=== PATIENT | female | born 1980 | race Native Hawaiian/Other Pacific Islander ===

== ENCOUNTER 2017-12-11 11:07 | Emergency (ER) | payer OTHER ==
[~2017-12-11] VITALS: Ht 162.6 cm; Wt 105.2 kg
[~2017-12-11 11:07] MED LIST: ALPR0.2566 PO; COZAAR100 MG PO; LEVO175T3 PO; METHYLDOPA250 MG PO; SERT50TA PO
[2017-12-11 11:10] VITALS: TEMP 98.9
[2017-12-11 12:01] LABS: POTASSIUM 3.5 mmol/L (3.6-5.2)
[2017-12-11 12:04] LABS: PLATELET COUNT 314 K/uL (152-353)
[2017-12-11 18:49] VITALS: BP 122/64
== END 2017-12-11 18:52 | disposition home or self-care (01) ==
LOC: ED 11:07
PROVIDERS: Emergency Medicine
DX: N20.0 Calculus of kidney (principal)
CPT/HCPCS: 36415; 80053; 81000; 81025; 82150; 83690; 85027; 96361; 96365; 96375; 99284; J0744; J1885; J2405; J2550

== ENCOUNTER 2017-12-16 12:43 | Emergency (ER) | payer OTHER ==
[~2017-12-16] VITALS: Ht 162.6 cm; Wt 108.0 kg
[2017-12-16 15:25] VITALS: BP 114/61; TEMP 97.6
== END 2017-12-16 15:25 | disposition home or self-care (01) ==
LOC: ED 12:43
DX: N20.0 Calculus of kidney (principal)
CPT/HCPCS: 36415; 96374; 96375; 99284; J1170; J2405

== ENCOUNTER 2018-12-12 09:27 | Emergency (ER) | payer OTHER ==
[~2018-12-12] VITALS: Ht 162.6 cm; Wt 113.4 kg
[2018-12-12 09:39] VITALS: BP 154/94; TEMP 98
== END 2018-12-12 10:30 | disposition home or self-care (01) ==
LOC: ED 09:27
DX: S80.01XA Contusion of right knee, initial encounter (principal); W22.09XA Striking against other stationary object, initial encounter; Y92.512 Supermarket, store or market as the place of occurrence of the external cause
CPT/HCPCS: 99282

== ENCOUNTER 2019-01-29 13:16 | Outpatient (CLI) | payer OTHER | END 2019-01-29 19:45 | disposition home or self-care (01) | LOC: US 13:16 | DX: R10.11 Right upper quadrant pain (principal) ==

== ENCOUNTER 2019-02-02 10:29 | Outpatient (CLI) | payer OTHER | END 2019-02-02 19:37 | disposition home or self-care (01) | LOC: RAD 10:29 | DX: E03.9 Hypothyroidism, unspecified (principal); R10.11 Right upper quadrant pain; I10 Essential (primary) hypertension | CPT/HCPCS: 36415; 74022; 86318 ==

== ENCOUNTER 2022-11-25 03:13 | Emergency (ER) | payer OTHER ==
[~2022-11-25] VITALS: Ht 162.6 cm; Wt 88.9 kg
[2022-11-25 06:27] LABS: PLATELET COUNT 311 K/uL (152-353)
[2022-11-25 06:37] LABS: POTASSIUM 3.7 mmol/L (3.6-5.2)
[2022-11-25 07:15] VITALS: BP 140/81; TEMP 98.7
== END 2022-11-25 07:17 ==
LOC: ED 03:13
PROVIDERS: Emergency Medicine
DX: Z04.41 Encounter for examination and observation following alleged adult rape (principal); T76.11XA Adult physical abuse, suspected, initial encounter; X58.XXXA Exposure to other specified factors, initial encounter; Y92.89 Other specified places as the place of occurrence of the external cause
CPT/HCPCS: 36415; 80053; 80143; 80179; 80307; 80320; 81002; 81025; 85027; 99284

== ENCOUNTER 2023-04-25 18:10 | Emergency (ER) | payer OTHER ==
[~2023-04-25] VITALS: Ht 162.6 cm; Wt 88.5 kg
[2023-04-25 18:20] VITALS: BP 131/83; TEMP 98.6
[2023-04-25 18:59] LABS: POTASSIUM 3.8 mmol/L (3.6-5.2)
[2023-04-25 19:00] LABS: PLATELET COUNT 262 K/uL (152-353)
== END 2023-04-25 22:15 | disposition home or self-care (01) ==
LOC: ED 18:10
PROVIDERS: Family Medicine
DX: K57.90 Diverticulosis of intestine, part unspecified, without perforation or abscess without bleeding (principal); R10.9 Unspecified abdominal pain; F17.210 Nicotine dependence, cigarettes, uncomplicated
CPT/HCPCS: 36415; 80053; 81002; 81025; 83690; 85027; 96361; 96365; 96375; 99284; J2270; J2550; Q9963